=== PATIENT | male | born 1985 | race Caucasian/White ===

== ENCOUNTER 2022-11-09 15:53 | Emergency (ER) | payer BC ==
[2022-11-09] MEDS ORDERED: Acetaminophen-Codeine 300-30mg TAB PO STA (17:14)
[2022-11-09] MEDS ORDERED: CEPHALEXIN 500 MG CAP PO STA (17:14)
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
[2022-11-09] MEDS ORDERED: ACET/COD 300 MG/30 MG STARTER PACK 6 TAB BTL PO STA (19:35)
[2022-11-09] MEDS ORDERED: CEPHALEXIN 500MG STARTER PACK 4 CAP BTL PO STA (19:35)
[2022-11-09] MEDS ORDERED: IBUPROFEN 600 MG STARTER PACK 4 TAB BTL PO STA (19:35)
[2022-11-09 19:52] VITALS: BP 128/77; PULSE 112; RESP 18; TEMP 98.1
== END 2022-11-09 19:52 | disposition home or self-care (01) ==
LOC: EC 15:53
DX: S02.40EA Zygomatic fracture, right side, initial encounter for closed fracture (principal); S02.841A Fracture of lateral orbital wall, right side, initial encounter for closed fracture; E11.36 Type 2 diabetes mellitus with diabetic cataract; F17.200 Nicotine dependence, unspecified, uncomplicated; Z79.4 Long term (current) use of insulin; V29.99XA Rider (driver) (passenger) of other motorcycle injured in unspecified traffic accident, initial encounter; Y92.410 Unspecified street and highway as the place of occurrence of the external cause
CPT/HCPCS: 70450; 70486; 72125; 99285